=== PATIENT | male | born 1930 | race Caucasian/White ===

== ENCOUNTER 2017-02-10 12:43 | Emergency (ER) | payer MEDICARE, BC ==
--- NOTE | 2017-02-10 13:43 | Emergency Department Record ---
History of Present Illness - General Chief complaint: Cold Stated complaint: cold Time Seen by Provider: 02/10/17 13:42 Source: Patient Mode of Arrival: Ambulatory Limitations: No limitations - History of Present Illness Initial comments: The patient is here due to having a URI for about a week. He has had a dry cough , mild ST, nasal drainage and congestion for about 6 days. He denies any CARRILLO, fever, chills, CP, SOB or PADMINI. MD complaint: Other Onset/Timin -: Week(s) Worsens with: Eating, Swallowing - Related Data Home Medications Medication Instructions Recorded Confirmed Last Taken Amlodipine Besylate 5 mg PO BID 05/09/14 02/10/17 02/10/17 Atorvastatin Calcium [Lipitor] 20 mg PO DAILY 05/09/14 02/10/17 02/10/17 Budesonide/Formoterol Fumarate 2 puff INH DAILY 05/09/14 02/10/17 02/10/17 [Symbicort 160-4.5 Mcg Inhaler] Finasteride 1 tab PO DAILY 05/09/14 02/10/17 02/10/17 Glipizide [Glipizide Xl] 1 tab PO DAILY 05/09/14 02/10/17 02/10/17 Omeprazole 1 tab PO DAILY 05/09/14 02/10/17 02/10/17 Aspirin [Ecotrin] 81 mg PO DAILY 02/11/15 02/10/17 02/10/17 Isosorbide Mononitrate [Imdur] 60 mg PO DAILY 04/16/15 02/10/17 02/10/17 Tiotropium [place] [Spiriva] 1 cap IH DAILY 04/16/15 02/10/17 02/10/17 Albuterol Sulfate [Proair Hfa] 1 - 2 puff IH .EVERY 4-6 HOURS PRN 05/18/1502/1002/10/17 Apixaban [Eliquis] 2.5 mg PO BID 05/18/15 02/10/17 02/10/17 Bimatoprost [Lumigan] 5 ml OP QHS 05/18/15 02/10/17 02/10/17 Metoprolol Succinate 50 mg PO DAILY 05/18/15 02/10/17 02/10/17 Nitroglycerin [Nitrostat] 0.4 mg SL ASDIR PRN 05/18/15 02/10/17 02/10/17 Saxagliptin HCl [Onglyza] 1 tab PO DAILY 05/18/15 02/10/17 02/10/17 Insulin Aspart [Novolog Flexpen] 5 units SQ 0700,1730 11/13/15 02/10/17 02/10/17 Ascorbic Acid [Vitamin C] 500 mg PO DAILY 03/21/16 02/10/17 02/10/17 Fish Oil/Borage/Flax/Om3,6,9 1 1,200 mg PO DAILY 03/21/16 02/10/17 02/10/17 [[place] 3-6-9 1,200 mg Softgel] Lisinopril [Zestril] 5 mg PO DAILY 03/21/16 02/10/17 02/10/17 Melatonin 5 mg PO ASDIR 03/21/16 02/10/17 02/10/17 Multivitamin [Multi-Vitamin Daily] 1 tab PO DAILY 03/21/16 02/10/17 02/10/17 Insulin Glargine,Hum.rec.anlog 10 unit SQ ASDIR 02/10/17 02/10/17 02/09/17 [Lantus] Previous Rx's Medication Instructions Recorded Furosemide [Lasix] 20 mg PO DAILY #30 tablet 11/24/15 Doxycycline Monohydrate [Mondoxyne 100 mg PO BID #14 capsule 02/10/17 Nl] Allergies Allergy/AdvReac Type Severity Reaction Status Date / Time Iodinated Contrast Media - AdvReac Severe Decreased Verified 02/10/17 13:23 Oral and kidney [Iodinated Contrast Media - function IV Dye] iodine [IODINE] AdvReac Severe Decreased Verified 02/10/17 13:23 kidney function Travel Screening - Travel/Exposure Within Last 30 Days Have you traveled within the last 30 days?: No - Travel/Exposure Within Last Year Have you traveled outside the [place] in the last year?: No - Additonal Travel Details Have you been exposed to anyone with a communicable illness?: No - Travel Symptoms Symptom Screening: None Review of Systems Constitutional: Reports: Malaise. Denies: Chills, Fever Eyes: Denies: Eye discharge ENT: Reports: Congestion Respiratory: Reports: Cough. Denies: Dyspnea Past Medical History - SOCIAL HISTORY Smoking Status: Former smoker Alcohol Use: Occassional Drug Use: None - RESPIRATORY Hx Respiratory Disorders: Yes Hx Bronchitis: Yes Hx COPD: Yes Hx Dyspnea: Yes Hx Pneumonia: Yes - CARDIOVASCULAR Hx Cardio Disorders: Yes Hx Cardiac Cath: Yes (2003) Hx Chest Pain: Yes (open heart surgery 2004) Hx Heart Attack: Yes (2001, four stents) Hx Hypertension: Yes Hx Irregular Heartbeat: Yes Hx Pacemaker/Defib: Yes - NEURO Hx Neuro Disorders: Yes Hx Dizziness: Yes - GI Hx GI Disorders: Yes Hx Reflux: Yes Hx of Polyps: Yes (2012) - Hx Genitourinary Disorders: Yes Hx Prostate Problems: Yes (enlarged prostrate) - ENDOCRINE Hx Endocrine Disorders: Yes Hx Diabetes: Yes - MUSCULOSKELETAL Hx Musculoskeletal Disorders: No Hx Arthritis: No Hx Back Injury: No Hx Fibromyalgia: No Hx Gout: No Hx Musculoskeletal Disease: No Hx Osteoporosis: No - PSYCH Hx Psych Problems: No Hx Anxiety: No Hx Behavior Problems: No Hx Depression: No Hx Emotional Abuse: No Hx Sexual Abuse: No Hx Suicide Attempt: No - HEMATOLOGY/ONCOLOGY Hx Hematology/Oncology Disorders: No Hx Cancer: Yes Family Medical History Any Significant Family History?: Yes Family Hx Comment (NOT TO BE USED IN PLACE OF ITEMS BELOW): Father - Heart. Mother -Heart *Alcohol Comment: none *Anxiety Comment: none *Cancer Comment: none *Dementia Comment: none *Depression Comment: none Hx Diabetes: Grandparents *Diabetes Comment: none Hx Heart Disease: Father, Mother, Grandparents Hx HTN: Grandparents *HTN Comment: none *Kidney Comment: none *Liver Comment: none *Resp Comment: none *Seizure Comment: none Hx Stroke: Father *Stroke Comment: none Physical Exam - General General Appearance: Alert, Oriented x3, Cooperative, No acute distress - Head Head exam: Atraumatic, Normocephalic, Normal inspection - Eye Eye exam: Normal appearance, PERRL - ENT Throat exam: Tonsillar erythema. negative: Normal inspection, Tonsillomegaly, Tonsillar exudate - Neck Neck exam: Normal inspection, Full ROM. negative: Tenderness - Respiratory Respiratory exam: Normal lung sounds bilaterally. negative: Respiratory distress, Rhonchi, Wheezes - Cardiovascular Cardiovascular Exam: Regular rate, Normal rhythm, Normal heart sounds - GI/Abdominal GI/Abdominal exam: Soft, Normal bowel sounds. negative: Tenderness - Extremities Extremities exam: Normal inspection, Full ROM, Normal capillary refill. negative: Tenderness Course Vital Signs 02/10/17 13:30 Temperature 98.2 F Pulse Rate 91 H Respiratory 18 Rate Blood Pressure 113/74 Pulse Ox 98 - Reevaluation(s) Reevaluation #1: I did explain to the patient that it appears he may have a URI. We will place him on Doxycycline and have him F/U with his PCP if not better. 02/10/17 13:53 Disposition Disposition: Discharge Clinical Impression: Upper respiratory infection, acute Disposition: Home, Self-Care Condition: (1) Good Instructions: Cold Symptoms (ED) Additional Instructions: Please take the Doxycycline as directed. Please see your PCP if not better in 2- 3 days. Return to the ER if worse. Prescriptions: Doxycycline Monohydrate [Mondoxyne Nl] 100 mg PO BID #14 capsule Forms: Patient Portal Access Time of Disposition: 13:51
== END 2017-02-10 13:55 | disposition home or self-care (01) ==
LOC: ER 12:43
DX: J06.9 Acute upper respiratory infection, unspecified (principal); R05 Cough
CPT/HCPCS: 99282

== ENCOUNTER 2017-05-14 08:27 | Day surgery (SDC) | payer MEDICARE, BC ==
[~2017-05-14 08:27] MED LIST: ACETAMINOPHEN 1,000 MG/100 ML BTL IV ONE; CEFAZOLIN 1 Gram 1 GM/50 ML BAG IVPB ONE
[2017-05-14 08:53] LABS: BASO % 0.4 % (0-6); EOS % 1.7 % (0-6); HEMATOCRIT 33.9 % (42.0-52.0); HEMOGLOBIN 10.9 gm/dl (14.0-18.0); LYMPH % 11.8 % (16-45); MEAN CELL VOLUME 99.1 fl (81-97); MEAN CORPUSCULAR HGB CONC 32.2 g/dl (32-36); MEAN PLATELET VOLUME 9.5 fl (7.4-10.4); MONO % 10.1 % (0-9); PLATELET COUNT 129 K/uL (130-400); RED BLOOD COUNT 3.42 M/uL (4.40-5.70); WHITE BLOOD COUNT W/O DIFF 5.3 K/uL (4.2-12.2)
[2017-05-14 08:59] LABS: MEAN CORPUSCULAR HEMOGLOBIN 31.8 pg (27-33)
[2017-05-14 09:09] LABS: CREATININE 1.7 mg/dL (0.66-1.25)
[2017-05-14] MEDS ORDERED: LIDOCAINE 2% MDV (20MG/ML) 20ML VIAL IV ONE (14:00)
[2017-05-14] MEDS ORDERED: PROPOFOL 10 MG/ML VIAL IV ONE (14:00)
[2017-05-14] MEDS ORDERED: SEVOFLURANE 250 ML INH ONE (14:00)
[2017-05-14] MEDS ORDERED: HYDROMORPHONE HCL 2 MG/ML VIAL IV ONE (14:00)
--- NOTE | 2017-05-17 10:40 | Operative Note ---
DATE OF SURGERY: 05/14/2017 Surgeon: Yaw Fernandez DO PREOPERATIVE DIAGNOSIS: Right inguinoscrotal hernia. POSTOPERATIVE DIAGNOSIS: Right inguinoscrotal hernia. OPERATION: Open right inguinal herniorrhaphy with mesh. Indication: The patient is an 86-year-old male who comes to clinic with pain and bulging in his right inguinal region. He has reducible inguinoscrotal hernia noted. We did discuss repair versus observation. Due to the symptomatic nature and enlarging nature, we did discuss repair. Risks include bleeding, infection, acute or chronic pain, recurrence. He understood this fully. Due to the fact that he is on anticoagulants, he has a higher chance of bruising and bleeding afterwards and he understands this fully. Thereafter, consent signed, questions answered. PROCEDURE: The patient was taken to the operating room and placed in a supine position. General anesthesia was administered per the department of anesthesia. The patient's right inguinal region was shaved of hair and prepped and draped in the usual fashion. Oblique region was anesthetized with a total of 5 mL of 0.25% Sensorcaine with epinephrine. Block was also done medial to the ASIS. At this time, a 4 cm oblique incision was made. This was carried down through Myesha layer to the aponeurosis of the external oblique. This was cleansed off and a pricila was made with a scalpel blade, enlarged through the superficial inguinal ring with Metzenbaum scissors. Care was taken not to injure the underlying ilioinguinal nerve or spermatic cord. At this time, superior and inferior flaps are developed and a Shamar was placed on the spermatic cord. This was dissected free from underlying transversalis fascia and retracted laterally with a Riaz drain. The floor was inspected and noted to be free of any direct herniation. At this time, cremasteric fibers were taken down. There was a large indirect hernia sac noted as well as a cord lipoma. High ligation of each was done. At this time, a right-sided Prograf mesh was obtained. This was placed in the floor of the inguinal canal with excellent overlap of the pubic tubercle. Sutures went to the level of the second portion of the inguinal ligament, internal oblique aponeurosis, and pubic tubercle. We had excellent overlap laterally. At this time, aponeurosis of external oblique was closed with a 2-0 Vicryl, Myesha layer was closed with 3-0 Vicryl, and skin was closed with a 4-0 Vicryl. He was taken to the recovery room in satisfactory condition. FINDINGS AT THE TIME OF SURGERY: Right inguinoscrotal hernia repaired as above. CC: NEISHA BARRIOS MD, FACP [facility]
== END 2017-05-14 12:25 | disposition home or self-care (01) ==
LOC: SUR 08:27
PROVIDERS: ATTEND Surgery
DX: K40.90 Unilateral inguinal hernia, without obstruction or gangrene, not specified as recurrent (principal); I50.9 Heart failure, unspecified; Z95.1 Presence of aortocoronary bypass graft; E78.00 Pure hypercholesterolemia, unspecified; E11.9 Type 2 diabetes mellitus without complications; Z79.4 Long term (current) use of insulin; I10 Essential (primary) hypertension; I48.91 Unspecified atrial fibrillation
CPT/HCPCS: 49505; 00830; 85025; 85730; 80048; 88304; J0690; J1170

== ENCOUNTER 2017-10-28 10:36 | Emergency (ER) | payer MEDICARE, BC ==
--- NOTE | 2017-10-28 11:18 | Emergency Department Record ---
History of Present Illness - General Chief Complaint: Abrasion Stated Complaint: L HAND SCRATCH/CAN'T STOP BLEEDING Time Seen by Provider: 10/28/17 11:08 Source: Patient Mode of Arrival: Ambulatory Limitations: No limitations - History of Present Illness Initial Commments: pt scraped hand on refrigerator shelf and could not get bleeding stopped. pt takes eliquis and plavix Onset/Timin -: Hour(s) Extremity Location: Right: Hand Place: Home Context: Accidental - [place] Coma Scale Eye Response: (4) Open spontaneously Motor Response: (6) Obeys commands Verbal Response: (5) Oriented Del Total: 15 - Related Data Hx Tetanus Toxoid Vaccination: Yes Year of Tetanus Vaccination: 2013 Home Medications Medication Instructions Recorded Confirmed Last Taken Clopidogrel Bisulfate [Clopidogrel] 75 mg PO DAILY 10/28/17 10/28/17 10/27/17 Potassium Chloride 20 meq PO DAILY 10/28/17 10/28/17 10/27/17 Previous Rx's Medication Instructions Recorded Furosemide [Lasix] 20 mg PO DAILY #30 tablet 11/24/15 Allergies Allergy/AdvReac Type Severity Reaction Status Date / Time Iodinated Contrast- Oral and AdvReac Severe Decreased Verified 10/28/17 10:52 IV Dye kidney [Iodinated Contrast Media - function IV Dye] iodine [IODINE] AdvReac Severe Decreased Verified 10/28/17 10:52 kidney function Travel Screening - Travel/Exposure Within Last 30 Days Have you traveled within the last 30 days?: No - Travel/Exposure Within Last Year Have you traveled outside the [place] in the last year?: No - Additonal Travel Details Have you been exposed to anyone with a communicable illness?: No - Travel Symptoms Symptom Screening: None Review of Systems Reviewed: No additional complaints except as noted below Constitutional: Reports: As per HPI. Denies: Chills, Fever, Malaise, Night sweats, Weakness, Weight change Eyes: Reports: As per HPI. Denies: Eye discharge, Eye pain, Photophobia, Vision change ENT: Reports: As per HPI. Denies: Congestion, Dental pain, Ear pain, Epistaxis , Hearing loss, Throat pain Respiratory: Reports: As per HPI. Denies: Cough, Dyspnea, Hemoptysis, Stridor, Wheezes Cardiovascular: Reports: As per HPI. Denies: Arrhythmia, Chest pain, Dyspnea on exertion, Edema, Murmurs, Orthopnea, Palpitations, Paroxysmal nocturnal dyspnea, Rheumatic Fever, Syncope Endocrine: Reports: As per HPI. Denies: Fatigue, Heat or cold intolerance, Polydipsia, Polyuria Gastrointestinal: Reports: As per HPI. Denies: Abdominal pain, Constipation, Diarrhea, Hematemesis, Hematochezia, Melena, Nausea, Vomiting Genitourinary: Reports: As per HPI. Denies: Dysuria, Frequency, Hematuria, Incontinence, Retention, Testicular pain, Testicular mass, Urgency Musculoskeletal: Reports: As per HPI. Denies: Arthralgia, Back pain, Gout, Joint swelling, Myalgia, Neck pain Skin: Reports: As per HPI. Denies: Bruising, Change in color, Change in hair/ nails, Lesions, Pruritus, Rash Neurological: Reports: As per HPI. Denies: Abnormal gait, Confusion, Headache, Numbness, Paresthesias, Seizure, Tingling, Tremors, Vertigo, Weakness Psychiatric: Reports: As per HPI. Denies: Anxiety, Auditory hallucinations, Depression, Homicidal thoughts, Suicidal thoughts, Visual hallucinations Hematological/Lymphatic: Reports: As per HPI. Denies: Anemia, Blood Clots, Easy bleeding, Easy bruising, Swollen glands Past Medical History - SOCIAL HISTORY Smoking Status: Former smoker Alcohol Use: None Drug Use: None - RESPIRATORY Hx Respiratory Disorders: Yes Hx COPD: Yes - CARDIOVASCULAR Hx Cardio Disorders: Yes Hx Abnormal EKG: No Hx Hypertension: Yes Hx Irregular Heartbeat: Yes Hx Pacemaker/Defib: Yes - NEURO Hx Neuro Disorders: Yes Comment:: Raynauds - GI Hx GI Disorders: Yes Hx Reflux: Yes Hx of Polyps: Yes (2012) - Hx Genitourinary Disorders: Yes Hx Renal Disease: Yes - ENDOCRINE Hx Endocrine Disorders: Yes Hx Diabetes: Yes Comment:: blood sugars up and down going through med adjustments - MUSCULOSKELETAL Hx Musculoskeletal Disorders: No Hx Arthritis: No - PSYCH Hx Psych Problems: No Hx Anxiety: No - HEMATOLOGY/ONCOLOGY Hx Hematology/Oncology Disorders: No Hx Bruising: No Hx Cancer: Yes Family Medical History Any Significant Family History?: No Family Hx Comment (NOT TO BE USED IN PLACE OF ITEMS BELOW): Father - Heart. Mother -Heart *Alcohol Comment: none *Anxiety Comment: none *Cancer Comment: none *Dementia Comment: none *Depression Comment: none Hx Diabetes: Grandparents *Diabetes Comment: none Hx Heart Disease: Father, Mother, Grandparents Hx HTN: Grandparents *HTN Comment: none *Kidney Comment: none *Liver Comment: none *Resp Comment: none *Seizure Comment: none Hx Stroke: Father *Stroke Comment: none Physical Exam - General General Appearance: Alert, Oriented x3, Cooperative, Mild distress - Head Head exam: Normal inspection - Eye Eye exam: Normal appearance, PERRL, EOMI Pupils: Normal accommodation - ENT ENT exam: Normal exam, Mucous membranes moist, Normal external ear exam, Normal orophraynx Ear exam: Normal external inspection. negative: External canal tenderness Nasal Exam: Normal inspection. negative: Discharge, Sinus tenderness Mouth exam: Normal external inspection, Tongue normal Teeth exam: Normal inspection. negative: Dental caries Throat exam: Normal inspection. negative: Tonsillar erythema, Tonsillar exudate - Neck Neck exam: Normal inspection, Full ROM. negative: Tenderness - Respiratory Respiratory exam: Normal lung sounds bilaterally. negative: Respiratory distress - Cardiovascular Cardiovascular Exam: Regular rate, Normal rhythm, Normal heart sounds - GI/Abdominal GI/Abdominal exam: Soft, Normal bowel sounds. negative: Tenderness - Rectal Rectal exam: Deferred - exam: Deferred - Extremities Extremities exam: Normal inspection, Full ROM, Normal capillary refill. negative: Tenderness - Back Back exam: Reports: Normal inspection, Full ROM. Denies: Muscle spasm, Rash noted, Tenderness - Neurological Neurological exam: Alert, CN II-XII intact, Normal gait, Oriented X3 - Psychiatric Psychiatric exam: Normal affect, Normal mood - Skin Skin exam: Dry, Intact, Normal color, Warm Type of lesion: abrasion, Laceration, Other (superficial skin flap, bleeding controlled) Course Vital Signs 10/28/17 10:41 Pulse Rate 65 Respiratory 16 Rate Blood Pressure 158/83 Pulse Ox 98 Disposition Disposition: Discharge Clinical Impression: Skin tear Disposition: Home, Self-Care Condition: (1) Good Instructions: Skin Tear (ED) Additional Instructions: follow up with family doctor. return sooner if worse. use pressure if bleeding reoccurs Quality - Quality Measures Quality Measures: N/A - Blood Pressure Screening Does Patient Have Any of the Following: No Blood Pressure Classification: Pre-Hypertensive BP Reading Systolic Measurement: 158 Diastolic Measurement: 83 Screening for High Blood Pressure: < Pre-Hypertensive BP, F/U Documented > [ G8950] Pre-Hypertensive Follow-up Interventions: Follow-up with rescreen every year.
== END 2017-10-28 11:44 | disposition home or self-care (01) ==
LOC: ER 10:36
DX: S61.411A Laceration without foreign body of right hand, initial encounter (principal); W22.8XXA Striking against or struck by other objects, initial encounter; I10 Essential (primary) hypertension; Z79.01 Long term (current) use of anticoagulants; Z87.891 Personal history of nicotine dependence
CPT/HCPCS: 99282

== ENCOUNTER 2018-08-30 13:24 | Emergency (ER) | payer MEDICARE, BC ==
--- NOTE | 2018-08-30 13:50 | Emergency Department Record ---
History of Present Illness - General Chief Complaint: Laceration(s) Stated Complaint: LACERATION RT ARM, ON BLOOD THINNER Time Seen by Provider: 08/30/18 13:37 Source: Patient Mode of Arrival: Ambulatory Limitations: No limitations - History of Present Illness Initial Commments: The patient suffered a skin tear to the R lateral forearm 11 hours ago at home. He denies any arm pain but the superficial lac has not stopped bleeding. He does take Plavix and Eliquis. His Immun. are UTD. Onset/Timin -: Hour(s) Place: Home Context: Accidental - [place] Coma Scale Eye Response: (4) Open spontaneously Motor Response: (6) Obeys commands Verbal Response: (5) Oriented [place] Total: 15 - Related Data Hx Tetanus Toxoid Vaccination: Yes Year of Tetanus Vaccination: 2013 Previous Rx's Medication Instructions Recorded Furosemide [Lasix] 20 mg PO DAILY #30 tablet 11/24/15 Allergies Allergy/AdvReac Type Severity Reaction Status Date / Time Iodinated Contrast- Oral and AdvReac Severe Decreased Verified 10/28/17 10:52 IV Dye kidney [Iodinated Contrast Media - function IV Dye] iodine [IODINE] AdvReac Severe Decreased Verified 10/28/17 10:52 kidney function Travel Screening - Travel/Exposure Within Last 30 Days Have you traveled within the last 30 days?: No - Travel/Exposure Within Last Year Have you traveled outside the [place] in the last year?: No - Additonal Travel Details Have you been exposed to anyone with a communicable illness?: No - Travel Symptoms Symptom Screening: None Review of Systems Constitutional: Denies: Chills, Fever, Malaise Past Medical History - SOCIAL HISTORY Smoking Status: Former smoker Alcohol Use: None Drug Use: None - RESPIRATORY Hx Respiratory Disorders: Yes Hx COPD: Yes - CARDIOVASCULAR Hx Cardio Disorders: Yes Hx Abnormal EKG: No Hx Hypertension: Yes Hx Irregular Heartbeat: Yes Hx Pacemaker/Defib: Yes - NEURO Hx Neuro Disorders: Yes Comment:: Raynauds - GI Hx GI Disorders: Yes Hx Reflux: Yes Hx of Polyps: Yes (2012) - Hx Genitourinary Disorders: Yes Hx Renal Disease: Yes - ENDOCRINE Hx Endocrine Disorders: Yes Hx Diabetes: Yes Comment:: blood sugars up and down going through med adjustments - MUSCULOSKELETAL Hx Musculoskeletal Disorders: No Hx Arthritis: No - PSYCH Hx Psych Problems: No Hx Anxiety: No - HEMATOLOGY/ONCOLOGY Hx Hematology/Oncology Disorders: No Hx Bruising: No Hx Cancer: Yes Family Medical History Any Significant Family History?: No Family Hx Comment (NOT TO BE USED IN PLACE OF ITEMS BELOW): Father - Heart. Mother -Heart *Alcohol Comment: none *Anxiety Comment: none *Cancer Comment: none *Dementia Comment: none *Depression Comment: none Hx Diabetes: Grandparents *Diabetes Comment: none Hx Heart Disease: Father, Mother, Grandparents Hx HTN: Grandparents *HTN Comment: none *Kidney Comment: none *Liver Comment: none *Resp Comment: none *Seizure Comment: none Hx Stroke: Father *Stroke Comment: none Physical Exam - General General Appearance: Alert, Oriented x3, Cooperative, No acute distress - Head Head exam: Atraumatic, Normocephalic - Eye Eye exam: Normal appearance, PERRL - Respiratory Respiratory exam: Normal lung sounds bilaterally. negative: Respiratory distress - Cardiovascular Cardiovascular Exam: Regular rate, Normal rhythm, Normal heart sounds - Extremities Extremities exam: Full ROM, Other (The R arm and hand are NVI.). negative: Normal inspection (There is a 1x1 cm superficial skin tear to the lateral mid forearm. There is no surrounding tenderness or erythema. ), Tenderness - Neurological Neurological exam: Alert, Normal gait. negative: Abnormal gait, Motor sensory deficit Course Vital Signs 08/30/18 13:41 Pulse Rate 87 Respiratory 18 Rate Blood Pressure 126/79 Pulse Ox 99 - Reevaluation(s) Reevaluation #1: The R arm wound was cleansed with betadine and sterile saline. The skin flap was replaced and a bandage placed without difficulty. 08/30/18 13:50 Disposition Disposition: Discharge Clinical Impression: Skin tear Disposition: Home, Self-Care Condition: (2) Stable Instructions: Laceration (ED) Additional Instructions: Keep the arm dry for 2 days then carefully wash and keep bandaged. Return to the ER for any signs of infection or pain. Forms: Patient Portal Access Time of Disposition: 13:51 Quality - Quality Measures Quality Measures: N/A - Blood Pressure Screening View Details: Yes Does Patient Have Any of the Following: No Blood Pressure Classification: Pre-Hypertensive BP Reading Systolic Measurement: 126 Diastolic Measurement: 79 Screening for High Blood Pressure: < Pre-Hypertensive BP, F/U Documented > [ G8950] Pre-Hypertensive Follow-up Interventions: Referral to alternative/primary care provider.
== END 2018-08-30 13:58 | disposition home or self-care (01) ==
LOC: ER 13:24
DX: S51.811A Laceration without foreign body of right forearm, initial encounter (principal); W22.8XXA Striking against or struck by other objects, initial encounter; I10 Essential (primary) hypertension; J44.9 Chronic obstructive pulmonary disease, unspecified; Z79.01 Long term (current) use of anticoagulants; Z87.891 Personal history of nicotine dependence
CPT/HCPCS: 99282

== ENCOUNTER 2018-09-21 11:49 | Emergency (ER) | payer MEDICARE, BC ==
[2018-09-21] MEDS ORDERED: DEXAMETHASONE SOD PHOSPHATE 10MG/ML VIAL PO ONE (13:55)
--- NOTE | 2018-09-21 14:04 | Emergency Department Record ---
History of Present Illness - General Chief Complaint: Cough Stated Complaint: UPPER RESP/THROAT Time Seen by Provider: 09/21/18 13:39 Source: Patient, Family Mode of Arrival: Ambulatory Limitations: No limitations - History of Present Illness Initial Comments: 88 yo male presents with a sore throat, cough, and congestion. 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 Since surgery he has had some sore throat. This week however he developed cough that so far is non productive. He has sinus drainage and congestion. He saw his doctor two days ago and was started on antibiotics. He has had one full day of antibiotics. He is not feeling improved at this point. His voice is deeper but clear. No nausea, vomiting or diarrhea. MD Complaint: Cough, Nasal congestion, Sore throat -: Week(s) (1) Severity: Moderate Quality: Aching Consistency: Constant Improves With: Nothing Worsens With: Other (cough) Associated Symptoms: Cough, Other (sore throat) Treatments Prior to Arrival: Other (Started an antibiotic) - Related Data Previous Rx's Medication Instructions Recorded Furosemide [Lasix] 20 mg PO DAILY #30 tablet 11/24/15 Allergies Allergy/AdvReac Type Severity Reaction Status Date / Time Iodinated Contrast- Oral and AdvReac Severe Decreased Verified 09/21/18 13:40 IV Dye kidney [Iodinated Contrast Media - function IV Dye] iodine [IODINE] AdvReac Severe Decreased Verified 09/21/18 13:40 kidney function Review of Systems Constitutional: Reports: Malaise. Denies: Chills Eyes: Denies: Eye discharge, Eye pain, Photophobia, Vision change ENT: Reports: Congestion, Throat pain. Denies: Ear pain, Epistaxis Respiratory: Reports: Cough. Denies: Dyspnea, Wheezes Cardiovascular: Denies: Chest pain, Palpitations, Syncope Endocrine: Reports: Fatigue Gastrointestinal: Denies: Abdominal pain, Diarrhea, Nausea, Vomiting Genitourinary: Denies: Dysuria, Frequency, Hematuria Musculoskeletal: Denies: Arthralgia, Back pain, Myalgia Skin: Denies: Bruising, Change in color, Rash Neurological: Reports: Headache Psychiatric: Denies: Anxiety Hematological/Lymphatic: Denies: Blood Clots, Easy bleeding, Easy bruising Past Medical History - SOCIAL HISTORY Smoking Status: Former smoker Drug Use: None - RESPIRATORY Hx Respiratory Disorders: Yes Hx COPD: Yes - CARDIOVASCULAR Hx Cardio Disorders: Yes Hx Abnormal EKG: No Hx Hypertension: Yes Hx Irregular Heartbeat: Yes Hx Pacemaker/Defib: Yes - NEURO Hx Neuro Disorders: Yes Comment:: Raynauds - GI Hx GI Disorders: Yes Hx Reflux: Yes Hx of Polyps: Yes (2012) - Hx Genitourinary Disorders: Yes Hx Renal Disease: Yes - ENDOCRINE Hx Endocrine Disorders: Yes Hx Diabetes: Yes Comment:: blood sugars up and down going through med adjustments - MUSCULOSKELETAL Hx Musculoskeletal Disorders: No Hx Arthritis: No - PSYCH Hx Psych Problems: No Hx Anxiety: No - HEMATOLOGY/ONCOLOGY Hx Hematology/Oncology Disorders: No Hx Bruising: No Hx Cancer: Yes Family Medical History Family Hx Comment (NOT TO BE USED IN PLACE OF ITEMS BELOW): Father - Heart. Mother -Heart *Alcohol Comment: none *Anxiety Comment: none *Cancer Comment: none *Dementia Comment: none *Depression Comment: none Hx Diabetes: Grandparents *Diabetes Comment: none Hx Heart Disease: Father, Mother, Grandparents Hx HTN: Grandparents *HTN Comment: none *Kidney Comment: none *Liver Comment: none *Resp Comment: none *Seizure Comment: none Hx Stroke: Father *Stroke Comment: none Physical Exam - General General Appearance: Alert, Oriented x3, Cooperative, No acute distress Limitations: No limitations - Head Head exam: Atraumatic, Normal inspection - Eye Eye exam: Normal appearance. negative: Conjunctival injection - ENT ENT exam: Normal exam, Mucous membranes moist, Normal orophraynx Ear exam: Normal external inspection Nasal Exam: Discharge (clear) Mouth exam: Normal external inspection Teeth exam: Normal inspection Throat exam: Normal inspection. negative: Tonsillar erythema, Tonsillomegaly, Tonsillar exudate, R peritonsillar mass, L peritonsillar mass - Neck Neck exam: Normal inspection. negative: Lymphadenopathy - Respiratory Respiratory exam: Normal lung sounds bilaterally. negative: Respiratory distress, Rhonchi, Stridor, Wheezes - Cardiovascular Cardiovascular Exam: Regular rate, Normal rhythm, Normal heart sounds - GI/Abdominal GI/Abdominal exam: Soft. negative: Tenderness - Rectal Rectal exam: Deferred - exam: Deferred - Extremities Extremities exam: Normal inspection - Back Back exam: Denies: CVA tenderness (R), CVA tenderness (L) - Neurological Neurological exam: Alert, Oriented X3 - Psychiatric Psychiatric exam: Normal affect, Normal mood - Skin Skin exam: Dry, Intact, Normal color, Warm Course - Reevaluation(s) Reevaluation #1: 09/21/18 14:25 The influenza swabs are negative His clinical course is not as consistent with other local cases of influenza He will continue his antibiotic 09/21/18 15:05 The CXR was negative. No pneumonia Disposition Disposition: Discharge Clinical Impression: Bronchitis Pharyngitis Qualifiers: Pharyngitis/tonsillitis etiology: unspecified etiology Qualified Code(s): J02.9 - Acute pharyngitis, unspecified Disposition: Home, Self-Care Condition: (1) Good Instructions: Pharyngitis (ED), Acute Bronchitis (ED) Additional Instructions: Call your doctor for a recheck this week If your sore throat continues I recommend discussing with your doctor and ENT referral as well for the discomfort of the last 2 months Return if worse, vomiting, or any new concerns. Forms: Patient Portal Access Time of Disposition: 15:08 Quality - Quality Measures Quality Measures: N/A - Blood Pressure Screening Does Patient Have Any of the Following: Active Dx of HTN Blood Pressure Classification: Pre-Hypertensive BP Reading Systolic Measurement: 146 Diastolic Measurement: 81 Screening for High Blood Pressure: Patient Exclusion, Hx of HTN [G9744] Pre-Hypertensive Follow-up Interventions: Referral to alternative/primary care provider.
[2018-09-21 14:19] LABS: INFLUENZA A NEGATIVE (NEGATIVE); INFLUENZA B NEGATIVE (NEGATIVE)
--- NOTE | 2018-09-23 14:13 | RADIOLOGY REPORT ---
DATE: 09/21/2018 at 1439 hours. EXAM: TWO-VIEW CHEST. HISTORY: COUGH AND CONGESTION FOR THE PAST TWO DAYS. TECHNIQUE: PA and lateral upright views of the chest were obtained. COMPARISON: 06/28/2017. FINDINGS: A pacemaker is in place on the right. A loop recorder device projects over the heart. The patient is status post median sternotomy. The heart is upper normal in size. There is calcification of the aorta. The mediastinum and pulmonary vasculature are normal. There are no visible acute infiltrates or effusions. There is no pneumothorax. Degenerative changes are present within the spine. IMPRESSION: 1. NO ACUTE CHEST PATHOLOGY. 2. STATUS POST MEDIAN STERNOTOMY. 3. PACEMAKER IN PLACE. JOB NUMBER: [id number] MTDD
== END 2018-09-21 15:27 | disposition home or self-care (01) ==
LOC: ER 11:49
DX: J20.9 Acute bronchitis, unspecified (principal); J02.9 Acute pharyngitis, unspecified; J44.9 Chronic obstructive pulmonary disease, unspecified; I10 Essential (primary) hypertension; F17.210 Nicotine dependence, cigarettes, uncomplicated
CPT/HCPCS: 99283 ×2; 87400; 71046; J1100

== ENCOUNTER 2019-01-12 06:17 | Emergency (ER) | payer MEDICARE, BC ==
--- NOTE | 2019-01-12 06:49 | Emergency Department Record ---
History of Present Illness - General Source: Patient, Family Mode of Arrival: Ambulatory Limitations: No limitations - History of Present Illness Initial Comments: 88 yo male presents with right sided pain for about one month. The pain woke him up early this morning. The pain is the area of the RUQ. It is sharp. No fever, chills, nausea, vomiting, diarrhea or hematuria. No rash. At times position changes will affect the pain. He has had his appendix removed. He does still have his gall bladder. No cough, chest pain or shortness of breath. PCP is Gupta. COURTNEY Complaint: Abdominal pain Onset/Timin -: Minutes(s) Location: RUQ, Other Radiation: None Migration to: No migration Severity scale (1-10): 2 Quality: Fullness, Sharp Consistency: Intermittent Improves With: Nothing Worsens With: Nothing Associated Symptoms: Denies other symptoms <AMIRA AC - Last Filed: 01/12/19 06:43> <Brigitte Veliz - Last Filed: 01/12/19 08:16> - General Chief Complaint: Abdominal Pain Stated Complaint: PAIN IN RIGHT SIDE Time Seen by Provider: 01/12/19 06:23 - Related Data Home Medications Medication Instructions Recorded Confirmed Last Taken Amiodarone HCl [Pacerone] 100 mg PO DAILY 01/12/19 01/12/19 Unknown Furosemide [Lasix] 20 mg PO ASDIR 01/12/19 01/12/19 Unknown Levothyroxine Sodium [Synthroid] 50 mcg PO DAILY 01/12/19 01/12/19 Unknown Prednisolone Acetate 1% Opth [Pred 1 drop OPTH QID 01/12/19 01/12/19 Unknown Forte] Allergies Allergy/AdvReac Type Severity Reaction Status Date / Time Iodinated Contrast- Oral and AdvReac Severe Decreased Verified 01/12/19 06:23 IV Dye kidney [Iodinated Contrast Media - function IV Dye] iodine [IODINE] AdvReac Severe Decreased Verified 01/12/19 06:23 kidney function Travel Screening - Travel/Exposure Within Last 30 Days Have you traveled within the last 30 days?: No - Travel/Exposure Within Last Year Have you traveled outside the [place] in the last year?: No - Additonal Travel Details Have you been exposed to anyone with a communicable illness?: No - Travel Symptoms Symptom Screening: None <AMIRA AC - Last Filed: 01/12/19 06:43> Review of Systems Constitutional: Denies: Chills, Fever, Malaise, Weakness Eyes: Denies: Eye discharge, Eye pain, Photophobia, Vision change ENT: Denies: Congestion, Throat pain Respiratory: Denies: Cough, Dyspnea Cardiovascular: Denies: Chest pain, Palpitations, Syncope Endocrine: Denies: Fatigue, Polydipsia, Polyuria Gastrointestinal: Reports: As per HPI, Abdominal pain. Denies: Constipation, Diarrhea, Hematemesis, Hematochezia, Melena, Nausea, Vomiting Genitourinary: Denies: Dysuria, Frequency, Hematuria Musculoskeletal: Denies: Arthralgia, Back pain, Myalgia Skin: Denies: Bruising, Change in color, Rash Neurological: Denies: Headache, Weakness Psychiatric: Denies: Anxiety Hematological/Lymphatic: Denies: Blood Clots, Easy bleeding, Easy bruising <AMIRA AC - Last Filed: 01/12/19 06:43> Past Medical History - SOCIAL HISTORY Smoking Status: Former smoker Alcohol Use: Occasional Drug Use: None - RESPIRATORY Hx Respiratory Disorders: Yes Hx COPD: Yes - CARDIOVASCULAR Hx Cardio Disorders: Yes Hx Abnormal EKG: No Hx Cardiac Cath: Yes Hx Heart Attack: Yes Hx Hypertension: Yes Hx Irregular Heartbeat: Yes Hx Pacemaker/Defib: Yes Hx Coronary Stent: Yes - NEURO Hx Neuro Disorders: Yes Comment:: Raynauds - GI Hx GI Disorders: Yes Hx Reflux: Yes Hx of Polyps: Yes (2012) - Hx Genitourinary Disorders: Yes Hx Renal Disease: Yes - ENDOCRINE Hx Endocrine Disorders: Yes Hx Diabetes: Yes Comment:: blood sugars up and down going through med adjustments - MUSCULOSKELETAL Hx Musculoskeletal Disorders: No Hx Arthritis: No - PSYCH Hx Psych Problems: No Hx Anxiety: No - HEMATOLOGY/ONCOLOGY Hx Hematology/Oncology Disorders: No Hx Bruising: No Hx Cancer: Yes <AMIRA AC - Last Filed: 01/12/19 06:43> Family Medical History Any Significant Family History?: Yes Family Hx Comment (NOT TO BE USED IN PLACE OF ITEMS BELOW): Father - Heart. Mother -Heart *Alcohol Comment: none *Anxiety Comment: none *Cancer Comment: none *Dementia Comment: none *Depression Comment: none Hx Diabetes: Grandparents *Diabetes Comment: none Hx Heart Disease: Father, Mother, Grandparents Hx HTN: Grandparents *HTN Comment: none *Kidney Comment: none *Liver Comment: none *Resp Comment: none *Seizure Comment: none Hx Stroke: Father *Stroke Comment: none <AMIRA AC - Last Filed: 01/12/19 06:43> Physical Exam - General General Appearance: Alert, Oriented x3, Cooperative, No acute distress Limitations: No limitations - Head Head exam: Atraumatic, Normal inspection - Eye Eye exam: Normal appearance, PERRL. negative: Conjunctival injection, Scleral icterus - ENT ENT exam: Normal exam Ear exam: Normal external inspection Nasal Exam: Normal inspection Mouth exam: Normal external inspection - Neck Neck exam: Normal inspection - Respiratory Respiratory exam: Normal lung sounds bilaterally. negative: Accessory muscle use, Chest wall tenderness, Decreased breath sounds, Respiratory distress, Rhonchi, Stridor, Wheezes - Cardiovascular Cardiovascular Exam: Regular rate, Normal rhythm, Normal heart sounds Peripheral Pulses: 2+: Radial (R), Radial (L) - GI/Abdominal GI/Abdominal exam: Soft, Tenderness (tender RUQ right lateral abdomen, no rash, soft, no pulsations). negative: Distended, Guarding, Rebound, Rigid - Rectal Rectal exam: Deferred - exam: Deferred - Extremities Extremities exam: Normal inspection, Full ROM, Normal capillary refill. negative: Pedal edema, Tenderness - Back Back exam: Denies: CVA tenderness (R), CVA tenderness (L), Rash noted - Neurological Neurological exam: Alert, Oriented X3 - Psychiatric Psychiatric exam: Normal affect, Normal mood - Skin Skin exam: Dry, Intact, Normal color, Warm <AMIRA AC - Last Filed: 01/12/19 06:43> Course Vital Signs 01/12/19 06:25 Temperature 97.9 F Pulse Rate 60 Respiratory 18 Rate Blood Pressure 173/83 Pulse Ox 100 - Reevaluation(s) Reevaluation #1: The patient was seen and examined Initial work up ordered 01/12/19 06:46 The case was turned over at shift change to Dr Veliz Please review her documentation for results and further management 01/12/19 07:00 <AMIRA AC - Last Filed: 01/12/19 06:43> Vital Signs 01/12/19 06:25 Temperature 97.9 F Pulse Rate 60 Respiratory 18 Rate Blood Pressure 173/83 Pulse Ox 100 - Reevaluation(s) Reevaluation #2: 01/12/19 08:10 ct shows sludge vs stones in gb. pt states he feels good enough to go home. pt will f/u w dr roper tomorrow. <Brigitte Veliz - Last Filed: 01/12/19 08:16> Medical Decision Making - Lab Data Result diagrams: 01/12/19 07:00 01/12/19 07:00 Lab Results 01/12/19 01/12/19 01/12/19 Range/Units 07:00 07:00 07:50 WBC 4.0 L (4.2-12.2) K/uL RBC 2.71 L (4.40-5.70) M/uL Hgb 9.0 L (14.0-18.0) gm/dl Hct 27.2 L (42.0-52.0) % MCV 100.4 H (81-97) fl MCH 33.2 H (27-33) pg MCHC 33.1 (32-36) g/dl RDW 12.2 (11.5-14.5) % Plt Count 137 (130-400) K/uL MPV 9.6 (7.4-10.4) fl Gran % 64.7 (47-80) % Lymphocytes % 20.7 (16-45) % Monocytes % 10.1 H (0-9) % Eosinophils % 3.5 (0-6) % Basophils % 1.0 (0-6) % Sodium 144 (136-145) mmol/L Potassium 4.2 (3.4-4.5) mmol/L Chloride 107 (98-107) mmol/L Carbon Dioxide 26.0 (22-29) mmol/L Anion Gap 11.0 (7-16) BUN 31 H (8-23) mg/dL Creatinine 1.8 H (0.7-1.2) mg/dL Estimated GFR 38 mL/min Random Glucose 66 L (74-109) mg/dL Calcium 9.0 (8.8-10.2) mg/dL Total Bilirubin 0.20 (0.2-1.0) mg/dL AST 18 (10.0-50.0) U/L ALT 11 (<41) U/L Alkaline Phosphatase 60 (40-129) U/L Total Protein 6.2 L (6.6-8.7) g/dL Albumin 4.0 (4.0-5.0) g/dL Globulin 2.2 (1.4-4.8) gm/dL Albumin/Globulin Ratio 1.8 (1.1-1.8) Lipase 35 (13-60) U/L Urine Color Yellow Urine Appearance Clear Urine pH 7.5 (5.0-8.0) Ur Specific [place] 1.015 (1.002-1.030) Urine Protein 100 mg/dl H (NEGATIVE) Urine Glucose (UA) Negative (NEGATIVE) Urine Ketones Negative (NEGATIVE) Urine Blood Negative (NEGATIVE) Urine Nitrite Negative (NEGATIVE) Urine Bilirubin Negative (NEGATIVE) Urine Urobilinogen 0.2 (0.20 - 1.00) E.U./dL Ur Leukocyte Esterase Negative (NEGATIVE) Urine RBC 0 - 2 (NONE SEEN) Urine WBC 0 - 2 (0-2/hpf) U Non-Squamous Epi Cells 0 - 2 /hpf Urine Bacteria Few <Brigitte Veliz - Last Filed: 01/12/19 08:16> Disposition <AMIRA AC - Last Filed: 01/12/19 06:43> Disposition: Discharge <Brigitte Veliz - Last Filed: 01/12/19 08:16> Clinical Impression: Biliary colic, Renal insufficiency Cholelithiasis Qualifiers: Cholelithiasis location: gallbladder Cholecystitis presence: without cholecystitis Biliary obstruction: without biliary obstruction Qualified Code(s) : K80.20 - Calculus of gallbladder without cholecystitis without obstruction Anemia Qualifiers: Anemia type: unspecified type Qualified Code(s): D64.9 - Anemia, unspecified Disposition: Home, Self-Care Condition: (1) Good Instructions: Gallstones (ED), Biliary Colic (ED) Additional Instructions: follow up with dr roper tomorrow. return sooner if worse. low fat diet Referrals: Yaw Roper [DOCTOR OF OSTEOPATH] - [facility] Specialty Clinics [Provider Group] Forms: Patient Portal Access Quality - Blood Pressure Screening Does Patient Have Any of the Following: No Blood Pressure Classification: Pre-Hypertensive BP Reading Systolic Measurement: 173 Diastolic Measurement: 83 Screening for High Blood Pressure: < Pre-Hypertensive BP, F/U Documented > [ G8950] <AMIRA AC - Last Filed: 01/12/19 06:43> - Quality Measures Quality Measures: N/A - Blood Pressure Screening Does Patient Have Any of the Following: No Blood Pressure Classification: Pre-Hypertensive BP Reading Systolic Measurement: 173 Diastolic Measurement: 83 Screening for High Blood Pressure: < Pre-Hypertensive BP, F/U Documented > [ G8950] Pre-Hypertensive Follow-up Interventions: Follow-up with rescreen every year. <Brigitte Veliz - Last Filed: 01/12/19 08:16>
[2019-01-12 07:07] LABS: EOS % 3.5 % (0-6); GRAN % 64.7 % (47-80); HEMATOCRIT 27.2 % (42.0-52.0); LYMPH % 20.7 % (16-45); MEAN CELL VOLUME 100.4 fl (81-97); MEAN CORPUSCULAR HEMOGLOBIN 33.2 pg (27-33); MEAN CORPUSCULAR HGB CONC 33.1 g/dl (32-36); MEAN PLATELET VOLUME 9.6 fl (7.4-10.4); MONO % 10.1 % (0-9); PLATELET COUNT 137 K/uL (130-400); RED BLOOD COUNT 2.71 M/uL (4.40-5.70); RED CELL DISTRIBUTION WIDTH 12.2 % (11.5-14.5)
[2019-01-12 07:16] LABS: BILIRUBIN,TOTAL 0.2 mg/dL (0.2-1.0); CREATININE 1.8 mg/dL (0.7-1.2)
[2019-01-12 07:17] LABS: TOTAL PROTEIN 6.2 g/dL (6.6-8.7)
[2019-01-12 07:21] LABS: ALB/GLOB RATIO 1.8 (1.1-1.8)
[2019-01-12 07:55] LABS: URINE APPEARANCE CLEAR; URINE BILIRUBIN NEGATIVE (NEGATIVE); URINE BLOOD NEGATIVE (NEGATIVE); URINE COLOR YELLOW; URINE GLUCOSE (UA) NEGATIVE (NEGATIVE); URINE KETONE NEGATIVE (NEGATIVE); URINE LEUKOCYTE ESTERASE NEGATIVE (NEGATIVE); URINE NITRITE NEGATIVE (NEGATIVE); URINE UROBILINOGEN 0.2 E.U./dL (0.20 - 1.00)
[2019-01-12 08:02] LABS: URINE BACTERIA FEW; URINE RBC 0 - 2 (NONE SEEN); URINE SQUAMOUS EPITHELIAL CELL 0 - 2 /hpf; URINE WBC 0 - 2 (0-2/hpf)
[2019-01-12] MEDS ORDERED: MORPHINE SULFATE 10 MG/ML VIAL IVP ONE (08:05)
--- NOTE | 2019-01-13 15:01 | CT SCAN REPORT ---
EXAM: CT OF THE ABDOMEN AND PELVIS WITHOUT CONTRAST HISTORY: RIGHT UPPER QUADRANT AND RIGHT FLANK PAIN. TECHNIQUE: Routine noncontrast CT images of the abdomen and pelvis were obtained. Comparison: None. FINDINGS: The visualized lung bases are unremarkable. The liver, pancreas, spleen, and adrenals are unremarkable. There appears to be some layering hyperdensity posteriorly within the gallbladder which could relate to cholelithiasis or sludge. The kidneys demonstrate multiple fluid attenuation masses bilaterally consistent with cysts on this noncontrast exam. There are renal calcifications. No calculi seen within the collecting system bilaterally. No hydronephrosis. There is a small hiatal hernia. Suggestion of mild gastric wall thickening, correlate for gastritis. There is a moderate volume of stool in the colon. Colonic diverticulosis without evidence for diverticulitis. The small bowel is normal in caliber. There is mild bladder wall thickening which may relate to outlet obstruction or cystitis. The prostate is enlarged measuring 6 x 5 cm. Moderate atherosclerotic calcifications throughout. No abdominal or pelvic lymphadenopathy. No free air or free fluid. The abdominal wall soft tissues are unremarkable. No acute osseous abnormality. Moderate scattered lumbar spondylosis. Sacroiliac joint degenerative change. IMPRESSION: 1. SUGGESTION OF POSSIBLE SLUDGE OR CHOLELITHIASIS. 2. THERE APPEARS TO BE SOME GASTRIC WALL THICKENING, CORRELATE FOR POSSIBLE GASTRITIS. 3. BILATERAL RENAL CYSTS. 4. NO EVIDENCE OF OBSTRUCTIVE UROPATHY. 5. MODERATE VOLUME OF STOOL WITHIN THE COLON. COLONIC DIVERTICULOSIS. 6. ENLARGED PROSTATE. BLADDER WALL THICKENING MAY RELATE TO CHRONIC OUTLET OBSTRUCTION VERSUS CYSTITIS. JOB NUMBER: [id number] [facility]
== END 2019-01-12 08:40 | disposition home or self-care (01) ==
LOC: ER 06:17
DX: K80.20 Calculus of gallbladder without cholecystitis without obstruction (principal); N28.9 Disorder of kidney and ureter, unspecified; D64.9 Anemia, unspecified; I10 Essential (primary) hypertension; I25.2 Old myocardial infarction; F17.210 Nicotine dependence, cigarettes, uncomplicated
CPT/HCPCS: 74176; 80053; 81001; 83690; 85025; 96374; 99285; J2270